=== PATIENT | female | born 1965 | race Caucasian/White ===

== ENCOUNTER 2016-07-06 18:45 | Emergency (ER) | payer BC ==
[~2016-07-06] VITALS: Ht 157.5 cm; Wt 103.5 kg
[2016-07-06 19:12] LABS: HEMATOCRIT 37.8 % (36.0-46.0); MCH 26.1 PG (29.0-34.0); MCHC 34.4 G/DL (30.0-36.0); MCV 75.9 FL (83-99); MEAN PLAT.VOLUME 9.7 uM^3 (9.5-12.4); PLATELET COUNT 305 K/uL (156-360); RBC DIS.WIDTH-CV 13.7 % (11.8-14.6); RBC DIS.WIDTH-SD 36.7 % (39-53); RED BLOOD COUNT 4.98 M/uL (3.80-5.20); WHITE BLOOD COUNT 14.1 K/uL (4.1-10.2)
[2016-07-06 19:20] LABS: CHLORIDE 105 mEq/L (99-109); POTASSIUM 4.1 mEq/L (3.7-5.4); SODIUM 138 mEq/L (136-147)
[2016-07-06 19:22] LABS: GLUCOSE 114 mg/dL (70-99)
[2016-07-06 19:24] LABS: ANION GAP 9 MEQ/L (2-14); TOTAL BILIRUBIN 0.8 mg/dL (0.0-1.0)
[2016-07-06 19:26] LABS: ALKALINE PHOSPHATASE 64 IU/L (3-129); GFR ESTIMATE (CALCULATED) > 59 mL/min/
[2016-07-06 19:27] LABS: UREA NITROGEN (BUN) 15 mg/dL (9-23)
[2016-07-06 19:30] LABS: LIPASE 101 U/L (1.0-51.0)
[2016-07-06 19:35] LABS: QUANTITATIVE HCG < 4.0 MIU/ML
[2016-07-06] MEDS ORDERED: FLAGYL500 MG PO (21:38)
[2016-07-06] MEDS ORDERED: CIPRO500 MG PO (21:38)
[2016-07-06 22:04] VITALS: BP 120/71
== END 2016-07-06 22:06 | disposition home or self-care (01) ==
LOC: EME 18:45
DX: K57.92 Diverticulitis of intestine, part unspecified, without perforation or abscess without bleeding (principal); E11.9 Type 2 diabetes mellitus without complications; I10 Essential (primary) hypertension; Z88.0 Allergy status to penicillin
CPT/HCPCS: 74177; 80053; 81003; 83690; 84702; 85027; 99281; 99284; J1885; J7040